=== PATIENT | male | born 1975 | race Hispanic/Latino ===

== ENCOUNTER 2018-08-13 03:21 | Emergency (ER) | payer OTHER ==
[2018-08-13 03:35] VITALS: BMI 25.0
[2018-08-13 03:37] VITALS: RESP 18
--- NOTE | 2018-08-13 04:50 | ED PDOC ---
Arrival/HPI - General Chief Complaint: Alcohol Ingestion Time Seen by Provider: 08/13/18 03:31 Historian: Patient - History of Present Illness Narrative History of Present Illness (Text): Angelo García is a 42 year old male, whose past medical history includes alcohol abuse, who presents to the Emergency department brought in by EMS for alcohol intoxication. Patient admits to drinking alcohol tonight and states he feels fine. Patient denies any fever, chills, chest pain, shortness of breath, nausea, vomiting, diarrhea, urinary symptoms, back pain, neck pain, headache, dizziness, or any other complaints. Symptom Onset: Gradual Symptom Course: Unchanged Activities at Onset: Light Context: Home Past Medical History - Provider Review Nursing Documentation Reviewed: Yes - Psychiatric Hx Anxiety: Yes Hx Depression: Yes Hx Substance Use: No Family/Social History - Physician Review Nursing Documentation Reviewed: Yes Family/Social History: Unknown Family HX Smoking Status: Heavy Smoker > 10 Cigarettes Daily Hx Alcohol Use: Yes Frequency of alcohol use: Daily Hx Substance Use: No Allergies/Home Meds Allergies/Adverse Reactions: Allergies No Known Allergies Allergy (Verified 08/13/18 03:32) Home Medications: Home Meds Medication Instructions Recorded Confirmed Unobtainable 08/14/18 08/14/18 Review of Systems - Physician Review All systems were reviewed & negative as marked: Yes - Review of Systems Constitutional: Normal. absent: Fevers Eyes: Normal ENT: Normal Respiratory: Normal. absent: SOB, Cough Cardiovascular: Normal. absent: Chest Pain Gastrointestinal: Normal. absent: Abdominal Pain, Diarrhea, Nausea, Vomiting Genitourinary Male: Normal. absent: Dysuria, Frequency, Hematuria, Urinary Output Changes Musculoskeletal: Normal. absent: Back Pain, Neck Pain Skin: Normal. absent: Rash Neurological: Normal. absent: Headache, Dizziness Endocrine: Normal Hemo/Lymphatic: Normal Psychiatric: Normal Physical Exam Vital Signs Reviewed: Yes Vital Signs Temp Pulse Resp BP Pulse Ox 08/13/18 03:35 97.6 F 90 18 128/88 100 Temperature: Afebrile Blood Pressure: Normal Pulse: Regular Respiratory Rate: Normal Appearance: Positive for: Well-Appearing, Non-Toxic, Comfortable Pain Distress: None Mental Status: Positive for: Alert and Oriented X 3 - Systems Exam Head: Present: Atraumatic, Normocephalic Pupils: Present: PERRL Extroacular Muscles: Present: EOMI Conjunctiva: Present: Normal Mouth: Present: Moist Mucous Membranes Neck: Present: Normal Range of Motion Respiratory/Chest: Present: Clear to Auscultation, Good Air Exchange. No: Respiratory Distress, Accessory Muscle Use Cardiovascular: Present: Regular Rate and Rhythm, Normal S1, S2. No: Murmurs Abdomen: No: Tenderness, Distention, Peritoneal Signs Back: Present: Normal Inspection Upper Extremity: Present: Normal Inspection. No: Cyanosis, Edema Lower Extremity: Present: Normal Inspection. No: Edema Neurological: Present: GCS=15, CN II-XII Intact, Speech Normal Skin: Present: Warm, Dry, Normal Color. No: Rashes Psychiatric: Present: Alert, Oriented x 3, Normal Insight, Normal Concentration Medical Decision Making ED Course and Treatment: Impression: 42 year old male brought in for alcohol intoxication. Plan: -- Reassess and disposition Prior Visits: Notes and results from previous visits were reviewed. Progress Notes: - Transfer of Care Patient signed out to Dr:Manny ulcas - Scribe Statement The provider has reviewed the documentation as recorded by the Torin Cowan Provider Scribe Attestation: All medical record entries made by the Scribe were at my direction and personally dictated by me. I have reviewed the chart and agree that the record accurately reflects my personal performance of the history, physical exam, medical decision making, and the department course for this patient. I have also personally directed, reviewed, and agree with the discharge instructions and disposition. Disposition/Present on Arrival - Present on Arrival Any Indicators Present on Arrival: No History of DVT/PE: No History of Uncontrolled Diabetes: No Urinary Catheter: No History of Decub. Ulcer: No History Surgical Site Infection Following: None - Disposition Have Diagnosis and Disposition been Completed?: Yes Diagnosis: Alcohol abuse Disposition: HOME/ ROUTINE Disposition Time: 07:00 Condition: FAIR Discharge Instructions (ExitCare): Alcohol Abuse and Alcoholism (DC) Print Language: MALAY Referrals: [facility] at [facility] [Outside] - Follow up with primary Gladys Valdivia MD [Medical Doctor] - Follow up with primary Forms: [employer] (Hungarian)
--- NOTE | 2018-08-13 06:56 | ED PDOC ---
Physical Exam Vital Signs Temp Pulse Resp BP Pulse Ox 08/13/18 06:46 98.1 F 90 18 102/67 96 08/13/18 03:35 97.6 F 90 18 128/88 100 Medical Decision Making ED Course and Treatment: 08/13/18 06:54 Patient signed out pending patient's clinical sobriety. 08/13/18 11:23 Patient awake, alert and desiring to go home. He is able to ambulate without assistance and does not show signs of tremulousness or alcohol withdrawal. He is ambulating around unit without assistance. He is stable for discharge Disposition/Present on Arrival - Present on Arrival Any Indicators Present on Arrival: No History of DVT/PE: No History of Uncontrolled Diabetes: No Urinary Catheter: No History of Decub. Ulcer: No History Surgical Site Infection Following: None - Disposition Have Diagnosis and Disposition been Completed?: Yes Diagnosis: Alcohol abuse Disposition: HOME/ ROUTINE Disposition Time: 11:25 Patient Plan: Discharge Condition: FAIR Discharge Instructions (ExitCare): Alcohol Abuse and Alcoholism (DC) Print Language: NAMIBIAN Referrals: Gladys Valdivia MD [Medical Doctor] - Follow up with primary [facility] at [facility] [place] [Outside] - Follow up with primary Forms: [employer] (Nepali)
[2018-08-13 11:37] VITALS: O2SAT 99
[2018-08-13 12:36] VITALS: BP 122/66; PULSE 90; TEMP 98
== END 2018-08-13 11:26 | disposition home or self-care (01) ==
LOC: ED 03:21
DX: F10.10 Alcohol abuse, uncomplicated (principal)

== ENCOUNTER 2018-08-14 02:55 | Emergency (ER) | payer OTHER ==
[2018-08-14 02:55] VITALS: BMI 25.0
--- NOTE | 2018-08-14 03:14 | ED PDOC ---
Arrival/HPI - General Chief Complaint: Alcohol Ingestion Time Seen by Provider: 08/14/18 03:01 Historian: Patient - History of Present Illness Narrative History of Present Illness (Text): 08/14/18 03:12 A 42 year old male, whose past medical history includes EtOH abuse, presents to the emergency department [facility] for public intoxication. Patient was found outside intoxicated and admits to drinking tonight.Hx. of alcohol abuse.Denies drug use.Patient denies any other complaints at this time. Past Medical History - Provider Review Nursing Documentation Reviewed: Yes - Infectious Disease Hx of Infectious Diseases: None - Psychiatric Hx Anxiety: Yes Hx Depression: Yes Hx Substance Use: No Family/Social History - Physician Review Nursing Documentation Reviewed: Yes Family/Social History: No Known Family HX Smoking Status: Heavy Smoker > 10 Cigarettes Daily Hx Alcohol Use: Yes Hx Substance Use: No Allergies/Home Meds Allergies/Adverse Reactions: Allergies No Known Allergies Allergy (Verified 08/13/18 03:32) Home Medications: Home Meds Medication Instructions Recorded Confirmed Unobtainable 08/14/18 08/14/18 Review of Systems - Physician Review All systems were reviewed & negative as marked: Yes - Review of Systems Constitutional: absent: Fevers, Night Sweats Respiratory: absent: SOB, Cough Cardiovascular: absent: Chest Pain Gastrointestinal: absent: Abdominal Pain, Diarrhea, Nausea, Vomiting Neurological: absent: Headache, Dizziness Physical Exam Appearance: Positive for: Other (intoxicated) Pain Distress: None - Systems Exam Head: Present: Atraumatic, Normocephalic Pupils: Present: PERRL Extroacular Muscles: Present: EOMI Conjunctiva: Present: Normal Mouth: Present: Moist Mucous Membranes Neck: Present: Normal Range of Motion Respiratory/Chest: Present: Clear to Auscultation, Good Air Exchange. No: Respiratory Distress, Accessory Muscle Use Cardiovascular: Present: Regular Rate and Rhythm, Normal S1, S2. No: Murmurs Abdomen: No: Tenderness, Distention, Peritoneal Signs Back: Present: Normal Inspection Upper Extremity: Present: Normal Inspection. No: Cyanosis, Edema Lower Extremity: Present: Normal Inspection. No: Edema Neurological: Present: GCS=15, CN II-XII Intact, Speech Normal Skin: Present: Warm, Dry, Normal Color. No: Rashes Psychiatric: Present: Intoxicated Medical Decision Making ED Course and Treatment: 08/14/18 03:13 Impression: 42 year old male brought in for intoxication. Plan: -- Reassess and disposition Progress Notes: - Scribe Statement The provider has reviewed the documentation as recorded by the Torin Smalls Provider Scribe Attestation: All medical record entries made by the Scribe were at my direction and personally dictated by me. I have reviewed the chart and agree that the record accurately reflects my personal performance of the history, physical exam, medical decision making, and the department course for this patient. I have also personally directed, reviewed, and agree with the discharge instructions and disposition. Disposition/Present on Arrival - Present on Arrival Any Indicators Present on Arrival: No History of DVT/PE: No History of Uncontrolled Diabetes: No Urinary Catheter: No History of Decub. Ulcer: No History Surgical Site Infection Following: None - Disposition Have Diagnosis and Disposition been Completed?: No Diagnosis: Alcohol intoxication Disposition: HOME/ ROUTINE Disposition Time: 07:01 Patient Plan: Discharge Condition: STABLE Referrals: [facility] [Outside] - Follow up with primary Forms: [employer] (Ghanaian)
[2018-08-14 04:11] VITALS: RESP 18
[2018-08-14 08:22] VITALS: O2SAT 98
[2018-08-14 11:45] VITALS: BP 110/70; PULSE 78; TEMP 98.3
== END 2018-08-14 11:45 | disposition home or self-care (01) ==
LOC: ED 02:55
DX: F10.129 Alcohol abuse with intoxication, unspecified (principal)